=== PATIENT | male | born 1985 | race Caucasian/White ===

== ENCOUNTER → 2016-09-27 | Outpatient (CLI) | payer OTHER ==
--- NOTE | 2016-09-27 16:51 | US ---
EXAMINATION TYPE: US scrotum with doppler. Grayscale and color Doppler Duplex imaging performed of t montserrat scrotum. DATE OF EXAM: 09/27/2016 COMPARISON: NONE CLINICAL HISTORY: N62 GYNECOMASTIA. No scrotal symptoms EXAM MEASUREMENTS: TESTICLES: Right Testicle: 5.1 x 3.0 x 2.2 cm Left Testicle: 4.6 x 2.7 x 2.3 cm EPIDIDYMIS HEAD: Right Epididymis: 1.0 cm Left Epididymis: 1.3 cm Doppler performed to assess for testicular vascularity; good bilateral color flow and waveforms are s een. There is no evidence of testicular torsion. No intra or extra testicular masses are seen. Presence of hydroceles: very mild lateral to bilateral testicles Presence of varicoceles: no IMPRESSION: 1. Tiny hydroceles. Otherwise unremarkable study.
[2016-09-27 17:58] LABS: Follicle Stimulating Hormone 2.9 mIU/mL (1.6-9.7)
--- NOTE | 2016-09-30 07:59 | USB ---
Reason for exam: clinical finding. Indicated problem(s): palpable abnormality in both breasts. Physical Findings: Nurse Summary: Left nipple 2cm nodule, right nipple 1.5cm nodule (nurse dw). US Breast BILAT Right breast ultrasound includes all four quadrants, the retroareolar region and axilla. Finding demonstrate a 2.2 x 1.3 x 1.3cm gynecomastia posterior nipple. Left breast ultrasound includes all four quadrants, the retroareolar region and axilla. Finding demonstrate a 2.6 x 1.3 x 2.1cm gynecomastia posterior nipple. These results were verbally communicated with the patient and result sheet given to the patient on 09/27/16. ASSESSMENT: Benign, BI-RAD 2 RECOMMENDATION: Clinical management of both breasts. Manage patient on a clinical basis.
== END | disposition home or self-care (01) ==
LOC: RADUSWWP 15:46
PROVIDERS: ATTEND Surgery
DX: N62 Hypertrophy of breast (principal); N43.3 Hydrocele, unspecified
CPT/HCPCS: 76870; 82627; 82670; 83001; 83002; 84403; 84439; 84443; 84481; 84702; 93975

== ENCOUNTER → 2016-09-30 | Outpatient (CLI) | payer OTHER ==
[2016-09-30 11:08] LABS: CH 32.1; CHCM 34.2; HCT 45.5 % (39.0-53.0); HDW 2.54; HGB 15.1 gm/dL (13.0-17.5); MCH 31.3 pg (25.0-35.0); MCHC 33.2 g/dL (31.0-37.0); MCV 94.2 fL (80.0-100.0); Mean Platelet Volume 6.9; RBC 4.83 m/uL (4.30-5.90); RDW 13.2 % (11.5-15.5); WBC 4.2 k/uL (3.8-10.6)
[2016-09-30 11:54] LABS: Anion Gap 10 mmol/L; Blood Urea Nitrogen 22 mg/dL (9-20); C Reactive Protein <5.0 mg/L (<10.0); Calcium 9.6 mg/dL (8.4-10.2); Carbon Dioxide 27 mmol/L (22-30); Chloride 106 mmol/L (98-107); Glucose 71 mg/dL (74-99); Non-African American GFR(MDRD) >60 (>60 ml/min/1.73 sqM); Potassium 4.3 mmol/L (3.5-5.1); Sodium 143 mmol/L (137-145)
[2016-09-30 12:24] LABS: Erythrocyte Sedimentation Rate 2 mm/hr (0-15)
[2016-10-04 16:18] LABS: Mis test requested (Non-blood) 17 KETOSTEROIDS
== END | disposition home or self-care (01) ==
LOC: LABWHC1 10:31
PROVIDERS: ATTEND Surgery
DX: N62 Hypertrophy of breast (principal)
CPT/HCPCS: 36415; 80048; 83586; 84432; 85027; 85652; 86140; 86800

== ENCOUNTER → 2017-09-30 | Outpatient (CLI) | payer OTHER ==
--- NOTE | 2017-09-30 14:44 | US ---
EXAMINATION TYPE: US mass soft tissue chest/back DATE OF EXAM: 09/30/2017 COMPARISON: NONE CLINICAL HISTORY: L72.0 Epidermal cyst. Patient noticed lump left lower back, area is sore and tender. scanned directly over patient's area of concern, left lower back, there is a 0.9 x 0.6 cm mixed lesio n with a very small amount of peripheral vascularity. IMPRESSION: Findings compatible with subcutaneous cyst, probable epidermal inclusion cyst
== END | disposition home or self-care (01) ==
LOC: RADUSWWP 13:24
PROVIDERS: ATTEND Family Medicine
DX: L72.0 Epidermal cyst (principal)

== ENCOUNTER 2018-04-09 12:33 | Day surgery (SDC) | payer OTHER ==
[2018-04-07 12:39] VITALS: BMI 26.4
[~2018-04-09 12:33] MED LIST: DEXAMETHASONE SOD PHOSPHATE 10 MG/ML 1 ML VIAL IV ONE; HYDROmorphone 0.5 MG/0.5 ML SYRINGE IVP PRN; LACTATED RINGERS 1,000 ML IV SCH; LIDOCAINE 1% 20 ML VIAL (10MG/ML) FOR IV START INTRADERMA PRN; MIDAZOLAM (PF) 2 MG/2 ML VIAL IV PRN; ONDANSETRON 4 MG/2 ML VIAL IVP ONE; SCOPOLAMINE 1.5MG/72HR PATCH TRANSDERM ONE
[2018-04-09] MEDS ORDERED: ceFAZolin IN SWFI 2 GM/20 ML SYRINGE IVP STA (13:56)
--- NOTE | 2018-04-09 13:58 | P.GSHP ---
History of Present Illness H&P Date: 04/09/18 CHIEF COMPLAINT: Back mass HISTORY OF PRESENT ILLNESS: The patient is a 33 year-old male with history of lipomas of the upper back. He presents today for surgical excision. PAST MEDICAL HISTORY: Please see list. PAST SURGICAL HISTORY: Please see list. MEDICATIONS: Please see list. ALLERGIES: Please see list. SOCIAL HISTORY: No illicit drug use FAMILY HISTORY: No reports of Crohn disease or ulcerative colitis. REVIEW OF ORGAN SYSTEMS: CONSTITUTIONAL: No reports of fevers or chills. GI: Denies any blood in stools or constipation. PHYSICAL EXAM: VITAL SIGNS: Stable Musculoskeletal: Approximately 5 cm lipomas, superficial, along the lower back. SKIN: Lesion identified along bilateral thighs. GENERAL: Well developed and in no acute distress. Pleasant. HEENT: No sclera icterus. Extraocular movements grossly intact. Moist buccal mucosa. Head is atraumatic, normocephalic. Hears conversational speech. No nasal drainage. NECK: Supple without lymphadenopathy. No JV distention. CHEST: Non-labored respirations and equal bilateral excursions. CARDIOVASCULAR: Regular rate and rhythm. Palpable 2+ radial pulses. ABDOMEN: Soft. Non-tender. Nondistended. NEUROLOGIC: No focal or lateralizing signs. PSYCH: Appropriate affect. Alert and oriented to person, place and time. ASSESSMENT: 1. Lipomas along the lower back. PLAN: 1. Will proceed of excision of subcutaneous tumor along the lower back. 2. DVT prophylaxis. 3. Antibiotic prophylaxis. 4. Time of recovery, at least one week. Past Medical History Past Medical History: No Reported History History of Any Multi-Drug Resistant Organisms: None Reported Past Surgical History: Adenoidectomy, Orthopedic Surgery, Tonsillectomy Additional Past Surgical History / Comment(s): LEFT WRIST, RIGHT SHOULDER SURG. Past Anesthesia/Blood Transfusion Reactions: No Reported Reaction Past Psychological History: No Psychological Hx Reported Smoking Status: Never smoker Past Alcohol Use History: Occasional Past Drug Use History: None Reported - Past Family History Mother Family Medical History: No Reported History Medications and Allergies Home Medications Medication Instructions Recorded Confirmed Type No Known Home Medications 04/07/18 04/07/18 History Allergies Allergy/AdvReac Type Severity Reaction Status Date / Time No Known Allergies Allergy Verified 04/09/18 13:57
[2018-04-09] MEDS ORDERED: SUCCINYLCHOLINE CHLORIDE 100 MG/5 ML SYR IV ONE (15:02)
[2018-04-09] MEDS ORDERED: fentaNYL (PF) 50 MCG/ML 2 ML AMP ONE (15:02)
[2018-04-09] MEDS ORDERED: PROPOFOL 10 MG/ML 20 ML VIAL IV ONE (15:02)
[2018-04-09] MEDS ORDERED: MIDAZOLAM 2 MG/2 ML VIAL ONE (15:02)
[2018-04-09] MEDS ORDERED: ePHEDrine SULFATE/0.9% NACL/PF 50 MG/5 ML SYRINGE IV ONE (15:02)
[2018-04-09] MEDS ORDERED: LIDOCAINE 1% INJ 10MG/ML (20 ML MDV) ONE (15:02)
[2018-04-09] MEDS ORDERED: BUPIVACAIN-EPI 0.25%-1:200,000 30 ML VIAL SQ ONE ×2 (15:41→16:10)
[2018-04-09] MEDS ORDERED: LACTATED RINGERS 1,000 ML IV ONE ×2 (15:51)
[2018-04-09 16:31] VITALS: TEMP 98.4
--- NOTE | 2018-04-09 16:38 | P.OP ---
Date of Procedure: 04/09/18 Preoperative Diagnosis: Left lower back mass Postoperative Diagnosis: Deep subfascial left lower back lipoma, 4 cm Procedure(s) Performed: Excision of deep subfascial left lower back mass, 4cm with intermediate closure 6-cm incision Anesthesia: GETA, local Surgeon: Jenn Hebert Estimated Blood Loss (ml): 10 Pathology: other (lipoma) Condition: stable Disposition: same day Operative Findings: 1. Excision of deep subfascial lipoma, 4 cm left lower back removed in piecemeal Plan - Discharge Summary Discharge Rx Participant: No New Discharge Prescriptions: No Action No Known Home Medications Discharge Medication List No Known Home Medications 04/07/18 [History]
[2018-04-09 17:33] VITALS: BP 125/61; PULSE 89; RESP 16
== END 2018-04-09 17:57 | disposition home or self-care (01) ==
LOC: OR 12:33
PROVIDERS: ATTEND Surgery Plastic and Reconstructive Surgery
DX: D17.1 Benign lipomatous neoplasm of skin and subcutaneous tissue of trunk (principal)
CPT/HCPCS: 88305; 21933; J2250 ×2; J1100; J2405; J2001; J3010; J0330; J2704; J0690

== ENCOUNTER → 2018-04-17 | Outpatient (CLI) | payer OTHER ==
--- NOTE | 2018-04-17 11:02 | MR ---
EXAMINATION TYPE: MR thoracic spine wo con DATE OF EXAM: 04/17/2018 COMPARISON: None HISTORY: Back pain Standard multiplanar, multisequence MRI departmental protocol Multiplanar, multisequence images of the thoracic spine were acquired. FINDINGS: At T5-T6 there is a small focal left paracentral disc herniation which encroaches upon the anterior m argin the spinal cord. Degenerative disc disease noted. No foraminal encroachment. T6-T7 there is a left paracentral disc herniation which results in mild anterior mass effect upon the spinal cord. No foraminal encroachment. At T7-T8 there is a central disc bulge but no canal stenosis. There is degenerative disc disease. No foraminal encroachment. T8-T9 there is degenerative disc disease and very mild central disc bulging but no canal stenosis. Ne ural foramina are patent. Remaining levels demonstrate no diagnostic evidence of disc herniation or canal doses. No foraminal e ncroachment. There is no abnormal signal the visualized spinal cord. Visualized aorta of normal caliber. No abnormal signal paraspinal soft tissues. Alignment is anatomic. No compression deformities. Incidental note is suggestive of a disc herniation at C5-C6 seen on the localizer image. IMPRESSION: 1. Degenerative disc disease T5-T9 with small focal left paracentral disc herniation T5-T6 and T6-C7. There is encroachment and mild mass effect upon the spinal cord. 2. On the localizer image there is findings suspicious for a disc herniation or protrusion C5-C6 dick elate with cervical spine MRI. 3. Disc bulging T7-T8 and T8-T9 with no evidence of canal stenosis or foraminal encroachment.
== END ==
LOC: RADMRIMAIN 08:41
PROVIDERS: ATTEND Family Medicine
DX: M51.24 Other intervertebral disc displacement, thoracic region (principal); M51.34 Other intervertebral disc degeneration, thoracic region
CPT/HCPCS: 72146

== ENCOUNTER → 2022-12-06 | Outpatient (CLI) | payer OTHER ==
[2022-12-06 10:54] LABS: Appearance,Urine Cloudy (Clear); Bilirubin,Urine Negative (Negative); Blood,Urine Negative (Negative); Color,Urine Light Yellow; Glucose,Urine (UA) Negative (Negative); Ketones,Urine Negative (Negative); Leukocyte Esterase,Urine Negative (Negative); Mucus,Urine Rare /hpf; Nitrite,Urine Negative (Negative); PH, Urine 7.5 (5.0-8.0); Protein,Urine Negative (Negative); RBC,Urine <1 /hpf (0-5); Specific Gravity,Urine 1.018 (1.001-1.035); Squamous Epithelial Cell,Urine <1 /hpf (0-4); Urobilinogen,Urine <2.0 mg/dL (<2.0); WBC,Urine 1 /hpf (0-5)
[2022-12-06 15:53] LABS: Basophils # (A) 0.04 X 10*3/uL (0.00-0.10); Basophils % (A) 0.7 %; Eosinophils # (A) 0.23 X 10*3/uL (0.04-0.35); Eosinophils % (A) 4.2 %; HCT 47.1 % (39.6-50.0); Lymphocytes # (A) 1.35 X 10*3/uL (0.90-5.00); Lymphocytes % (A) 24.8 %; MCH 31.6 pg (27.0-32.0); MCV 93.1 FL (80.0-97.0); Mean Platelet Volume 9.5 FL (9.5-12.2); Monocytes # (A) 0.48 X 10*3/uL (0.20-1.00); Monocytes % (A) 8.8 %; NRBC Per 100 WBC 0 X 10*3/uL (0.00-0.01); Neutrophils # (A) 3.33 X 10*3/uL (1.80-7.70); Neutrophils % (A) 61.3 %; Platelet Count 193 X 10*3/uL (140-440); RBC 5.06 X 10*6/uL (4.40-5.60); RDW 11.9 % (11.5-14.5); WBC 5.44 X 10*3/uL (4.50-10.00)
[2022-12-06 16:04] LABS: ALT 77 U/L (10-49); AST 37 U/L (14-35); Albumin 4.8 d/dL (3.8-4.9); Albumin/Globulin Ratio 2.18 Ratio (1.60-3.17); Alkaline Phosphatase 59 U/L (41-126); BUN/Creat Ratio 19.44 Ratio (12.00-20.00); Blood Urea Nitrogen 17.5 mg/dL (9.0-27.0); Calcium 9.4 mg/dL (8.7-10.3); Carbon Dioxide 21.5 mmol/L (21.6-31.8); Chloride 106 mmol/L (96-109); Chol/HDL Ratio 4.01 Ratio; Globulin 2.2 d/dL (1.6-3.3); Glucose 98 mg/dL (70-110); LDL Cholesterol,Calculated 149.1 mg/dL (0.0-131.0); Potassium 4.2 mmol/L (3.5-5.5); Sodium 138 mmol/L (135-145)
== END | disposition home or self-care (01) ==
LOC: LABWHC1 09:54
PROVIDERS: ATTEND Family Medicine
DX: Z00.01 Encounter for general adult medical examination with abnormal findings (principal)
CPT/HCPCS: 36415; 80053; 80061; 81001; 83036; 85025

== ENCOUNTER → 2023-01-09 | Outpatient (CLI) | payer OTHER ==
--- NOTE | 2023-01-09 22:15 | US ---
EXAMINATION TYPE: US liver DATE OF EXAM: 01/09/2023 COMPARISON: NONE CLINICAL INDICATION: Male, 37 years old with history of R94.5 abnormal liver function studies; LFTs TECHNIQUE: Multiple sonographic images of the right upper quadrant are obtained. FINDINGS: EXAM MEASUREMENTS: Liver Length: 17.2 cm Gallbladder Wall: 0.1 cm CBD: 0.3 cm Right Kidney: 12.0x4.8x4.0 cm Pancreas: No gross abnormality Liver: fatty infiltration, increased attenuation and echogenicity Gallbladder: possible layering sludge vs. Artifact Evidence for sonographic Castellano's sign: no CBD: wnl Right Kidney: wnl Nail Technician notes: Exam slightly limited by bowel gas shadowing and liver attenuation IMPRESSION: 1. Borderline hepatomegaly with moderate to severe hepatic steatosis. Appropriate clinical management advised. 2. Suspect small amount of layering sludge in the gallbladder. No gallstones or biliary ductal dilata tion.
== END | disposition home or self-care (01) ==
LOC: RADUSWWP 07:23
PROVIDERS: ATTEND Family Medicine
DX: K76.0 Fatty (change of) liver, not elsewhere classified (principal); R94.5 Abnormal results of liver function studies
CPT/HCPCS: 76705

== ENCOUNTER → 2023-02-28 | Outpatient (CLI) | payer OTHER ==
[2023-02-28 16:08] LABS: Basophils # (A) 0.04 X 10*3/uL (0.00-0.10); Basophils % (A) 0.8 %; Eosinophils # (A) 0.31 X 10*3/uL (0.04-0.35); Eosinophils % (A) 6.6 %; HCT 46.6 % (39.6-50.0); HGB 15.9 d/dL (13.0-17.0); Lymphocytes # (A) 1.49 X 10*3/uL (0.90-5.00); Lymphocytes % (A) 31.5 %; MCHC 34.1 d/dL (32.0-37.0); MCV 90.8 FL (80.0-97.0); Mean Platelet Volume 9.4 FL (9.5-12.2); Monocytes # (A) 0.47 X 10*3/uL (0.20-1.00); Monocytes % (A) 9.9 %; NRBC Per 100 WBC 0 X 10*3/uL (0.00-0.01); Neutrophils # (A) 2.41 X 10*3/uL (1.80-7.70); Platelet Count 217 X 10*3/uL (140-440); RBC 5.13 X 10*6/uL (4.40-5.60); RDW 11.5 % (11.5-14.5); WBC 4.73 X 10*3/uL (4.50-10.00)
[2023-02-28 16:09] LABS: ALT 45 U/L (10-49); AST 27 U/L (14-35); Albumin 4.8 d/dL (3.8-4.9); Albumin/Globulin Ratio 2.29 Ratio (1.60-3.17); Alkaline Phosphatase 56 U/L (41-126); Blood Urea Nitrogen 18.9 mg/dL (9.0-27.0); Calcium 9.5 mg/dL (8.7-10.3); Chloride 104 mmol/L (96-109); Globulin 2.1 d/dL (1.6-3.3); Glucose 98 mg/dL (70-110); Iron 114 UG/DL (65-175); Potassium 4.4 mmol/L (3.5-5.5); Sodium 139 mmol/L (135-145); Total Bilirubin 0.7 mg/dL (0.3-1.2); Total Iron Binding Capacity 354 UG/DL (228-460); Total Protein 6.9 d/dL (6.2-8.2)
[2023-02-28 16:22] LABS: Ceruloplasmin 22.5 mg/dL (20.0-60.0)
[2023-02-28 17:03] LABS: Albumin 4.9 d/dL (3.8-4.9); Protein, Total 7.1 d/dL (6.2-8.2)
[2023-02-28 17:19] LABS: Hepatitis B Surface Antigen Nonreactive; Hepatitis C IgG Antibody Nonreactive
== END | disposition home or self-care (01) ==
LOC: LABWHC1 10:21
PROVIDERS: ATTEND Internal Medicine Gastroenterology
DX: R74.8 Abnormal levels of other serum enzymes (principal)
CPT/HCPCS: 36415; 80053; 82103; 82390; 82728; 83516; 83540; 83550; 84165; 85025; 86803; 87340

== ENCOUNTER 2024-07-13 10:23 | Day surgery (SDC) | payer OTHER ==
[2024-07-09 14:17] VITALS: BMI 29.8
[2024-07-13] MEDS: IV FLUID CONTINUATION 1,000 ML IV ONE (11:02)
[2024-07-13 11:09] VITALS: TEMP 97
[2024-07-13] MEDS: LACTATED RINGERS 1,000 ML IV SCH (11:14)
[2024-07-13] MEDS ORDERED: PROPOFOL 10 MG/ML 20 ML VIAL IV ONE (12:13)
--- NOTE | 2024-07-13 12:29 | P.PCN ---
Date of Procedure: 07/13/24 Procedure(s) Performed: BRIEF HISTORY: Patient is a 39-year-old pleasant white male scheduled for an elective colonoscopy as a part of evaluation of intermittent rectal bleeding for the last 2 years duration. PROCEDURE PERFORMED: Colonoscopy with snare polypectomy. PREOPERATIVE DIAGNOSIS: Intermittent rectal bleeding. IV sedation per Anesthesia. PROCEDURE: After informed consent was obtained, the patient, was brought into the endoscopy unit. IV sedation was administered by Anesthesia under continuous monitoring. Digital rectal examination was normal. Initially the Olympus CF-160 flexible video colonoscope was then inserted in the rectum, gradually advanced into the cecum without any difficulty. Careful examination was performed as the scope was gradually being withdrawn. Ileocecal valve and the appendiceal orifice were visualized and appeared normal. Prep was excellent. Mucosa of the cecum, ascending colon, transverse colon, descending colon, appeared normal. The sigmoid colon there is a 5 mm polyp that was removed by cold snare polypectomy. Rest sigmoid colon, and rectum appeared normal. Retroflexion was performed in the rectum and no lesions were seen. The patient tolerated the procedure well. IMPRESSION: 5 mm sigmoid colon polyp status post cold snare polypectomy Rest of the colon appeared normal RECOMMENDATIONS: Findings of this examination were discussed with the patient as well as his family. High-fiber diet and fiber supplements on a regular basis. He was advised to follow with the biopsy results and if the biopsy reveals adenoma he can have repeat colonoscopy in 5 years.
[2024-07-13 12:35] VITALS: RESP 16
[2024-07-13 12:50] VITALS: BP 110/74; PULSE 67
== END 2024-07-13 13:09 | disposition home or self-care (01) ==
LOC: ORWHC2ENDO 10:23
PROVIDERS: ATTEND Internal Medicine Gastroenterology
DX: K62.5 Hemorrhage of anus and rectum (principal); K63.5 Polyp of colon; Z98.890 Other specified postprocedural states
CPT/HCPCS: 45385; J2704; 88305

== ENCOUNTER → 2024-07-14 | Outpatient (CLI) | payer OTHER ==
[2024-07-14 12:31] LABS: Amorphous Sediment,Urine Occasional /hpf; Appearance,Urine Cloudy (Clear); Bilirubin,Urine Negative (Negative); Blood,Urine Negative (Negative); Color,Urine Light Yellow; Glucose,Urine (UA) Negative (Negative); Ketones,Urine Negative (Negative); Leukocyte Esterase,Urine Negative (Negative); Mucus,Urine Rare /hpf; Nitrite,Urine Negative (Negative); Protein,Urine Negative (Negative); RBC,Urine <1 /hpf (0-5); Specific Gravity,Urine 1.017 (1.001-1.035); Urobilinogen,Urine <2.0 mg/dL (<2.0); WBC,Urine <1 /hpf (0-5)
[2024-07-14 16:00] LABS: Basophils # (A) 0.03 X 10*3/uL (0.00-0.10); Basophils % (A) 0.5 %; Eosinophils # (A) 0.21 X 10*3/uL (0.04-0.35); Eosinophils % (A) 3.8 %; HCT 46.9 % (39.6-50.0); HGB 15.9 g/dL (13.0-17.0); Lymphocytes # (A) 1.67 X 10*3/uL (0.90-5.00); Lymphocytes % (A) 30.5 %; MCH 30.3 pg (27.0-32.0); MCHC 33.9 g/dL (32.0-37.0); MCV 89.5 FL (80.0-97.0); Monocytes % (A) 7.3 %; NRBC Per 100 WBC 0 X 10*3/uL (0.00-0.01); Neutrophils # (A) 3.15 X 10*3/uL (1.80-7.70); Neutrophils % (A) 57.7 %; Platelet Count 282 X 10*3/uL (140-440); RBC 5.24 X 10*6/uL (4.40-5.60); RDW 11.9 % (11.5-14.5); WBC 5.47 X 10*3/uL (4.50-10.00)
[2024-07-14 16:29] LABS: ALT 35 U/L (10-49); AST 21 U/L (14-35); Albumin 4.4 g/dL (3.8-4.9); Albumin/Globulin Ratio 1.83 Ratio (1.60-3.17); Alkaline Phosphatase 63 U/L (41-126); Blood Urea Nitrogen 11.9 mg/dL (9.0-27.0); Calcium 9.5 mg/dL (8.7-10.3); Carbon Dioxide 25.3 mmol/L (21.6-31.8); Chloride 106 mmol/L (96-109); Globulin 2.4 g/dL (1.6-3.3); Glucose 94 mg/dL (70-110); LDL Cholesterol,Calculated 111.1 mg/dL (0.0-131.0); Potassium 4.7 mmol/L (3.5-5.5); Sodium 141 mmol/L (135-145); Total Bilirubin 0.7 mg/dL (0.3-1.2); Total Protein 6.8 g/dL (6.2-8.2); VLDL Calculation 17.92 mg/dL (5.00-40.00)
== END | disposition home or self-care (01) ==
LOC: LABWHC1 11:24
PROVIDERS: ATTEND Family Medicine
DX: Z00.00 Encounter for general adult medical examination without abnormal findings (principal); E66.3 Overweight
CPT/HCPCS: 36415; 80053; 80061; 81001; 82306; 83036; 84443; 85025